=== PATIENT | female | born 1965 | race Caucasian/White ===

== ENCOUNTER 2025-07-30 12:56 | Outpatient (CLI) | payer BC ==
[2025-07-30 14:10] LABS: ALT (SGPT) 27 U/L (Less than 34); AST (SGOT) 26 U/L (11-34); Albumin 4.2 g/dL (3.1-4.5); Alkaline Phosphatase 48 U/L (40-110); Anion Gap 10 mmol/L (10-20); BUN (Urea Nitrogen) 11 mg/dL (9.8-20.1); Bilirubin, Total 0.8 mg/dL (0.3-1.2); Calc. Creatinine Clearance 0 mL/min (70-130); Calcium 9.3 mg/dL (7.8-10.44); Carbon Dioxide 29 mmol/L (22-29); Chloride 103 mmol/L (98-107); Globulin 2.8 g/dL (2.4-3.5); Glucose 102 mg/dL (70-105); Potassium 3.8 mmol/L (3.5-5.1); Sodium 138 mmol/L (136-145)
[2025-07-30 14:23] LABS: #Basophils 0.07 10x3/uL (0.0-0.2); #Eosinophils 0.11 10x3/uL (0.0-0.7); #Monocytes 0.60 10x3/uL (0.11-0.59); #Neutrophils 5.53 10x3/uL (1.40-6.50); %Basophils 0.8 % (0.0-1.0); %Eosinophils 1.3 % (0.0-10.0); %Lymphocytes 25.6 % (21.0-51.0); %Monocytes 7.1 % (0.0-10.0); %Neutrophils 65.1 % (42.0-75.0); Hematocrit 42.3 % (36.0-47.0); Hemoglobin 14.2 g/dL (12.0-16.0); Mean Corpuscular Hemoglobin 30.4 pg (27.0-31.0); Mean Corpuscular Volume 90.6 fL (78.0-98.0); Platelet Count 255 10x3/uL (130-400); Red Blood Cell (RBC) Count 4.67 mill/uL (4.20-5.40); White Blood Cell (WBC) Count 8.49 10x3/uL (4.8-10.8)
== END 2025-07-30 12:57 | disposition home or self-care (01) ==
LOC: LABBT 12:56
PROVIDERS: ATTEND Internal Medicine
DX: Z01.818 Encounter for other preprocedural examination (principal); K57.32 Diverticulitis of large intestine without perforation or abscess without bleeding; K43.9 Ventral hernia without obstruction or gangrene
CPT/HCPCS: 80053; 85025; 93005; 93010

== ENCOUNTER 2025-07-30 13:00 | Inpatient (IN) | payer BC ==
[2025-07-30 13:07] VITALS: BMI 27.9
[2025-08-04] MEDS ORDERED: Acetaminophen 325 MG TAB ONE (06:20)
[2025-08-04] MEDS ORDERED: Heparin 5,000 UNITS/ML VIAL ONE (06:20)
[2025-08-04] MEDS ORDERED: CEFAZOLIN 2 GM VIAL ONE (06:21)
[2025-08-04] MEDS ORDERED: metroNIDAZOLE 500 MG (100 mL) BAG ONE (06:21)
[2025-08-04] MEDS ORDERED: Bupivacaine 0.25% HCL 30 ML VIAL ONE (07:00)
[2025-08-04] MEDS ORDERED: fentaNYL PF 100 MCG/2 ML SYRINGE ONE (07:17)
[2025-08-04] MEDS ORDERED: Rocuronium Bromide 10 MG/ML (10ML VIAL) ONE (07:17)
[2025-08-04] MEDS ORDERED: Lidocaine 1% PF 5 ML VIAL ONE (07:17)
[2025-08-04] MEDS ORDERED: Ondansetron PF 4 MG/2 ML Vial ONE (07:19)
[2025-08-04] MEDS ORDERED: PROPOFOL 200 MG/20 ML VIAL ONE (07:36)
[2025-08-04] MEDS ORDERED: HYDROmorphone 2 MG/ML VIAL ONE (07:59)
[2025-08-04] MEDS ORDERED: PHENYLEPHRINE-NS 100 MCG/ML 10 ML SYRINGE ONE (08:12)
[2025-08-04] MEDS ORDERED: Glycopyrrolate 0.2 MG/ML 5 ML SYRINGE ONE (08:45)
[2025-08-04] MEDS ORDERED: NEOSTIGMINE 3 MG/3 ML SYRINGE ONE (08:45)
[2025-08-04] MEDS ORDERED: Ondansetron PF 4 MG/2 ML Vial IVP PRN (09:11)
[2025-08-04] MEDS ORDERED: hydrALAZINE 20 MG/ML VIAL SLOW IVP PRN (09:11)
[2025-08-04] MEDS ORDERED: Cyclobenzaprine 10 MG TAB PO PRN (09:13)
[2025-08-04] MEDS ORDERED: Ketorolac Tromethamine 30 MG (1 mL) VIAL ONE (09:25)
[2025-08-04] MEDS: Acetaminophen 325 MG TAB PO SCH (11:36)
[2025-08-04] MEDS: Ketorolac Tromethamine 30 MG (1 mL) VIAL IVP SCH (12:30)
[2025-08-04] MEDS: DULoxetine 30 MG CAP PO SCH (21:11)
[2025-08-04] MEDS: Losartan 25 MG TAB PO SCH (21:12)
[2025-08-05 04:25] LABS: #Basophils 0.03 10x3/uL (0.0-0.2); #Eosinophils Less than 0.03 10x3/uL (0.0-0.7); #Monocytes 0.86 10x3/uL (0.11-0.59); #Neutrophils 10.87 10x3/uL (1.40-6.50); %Basophils 0.2 % (0.0-1.0); %Eosinophils 0.0 % (0.0-10.0); %Lymphocytes 11.3 % (21.0-51.0); %Monocytes 6.5 % (0.0-10.0); %Neutrophils 81.7 % (42.0-75.0); Hematocrit 39.7 % (36.0-47.0); Hemoglobin 13.0 g/dL (12.0-16.0); Mean Corpuscular Hemoglobin 29.8 pg (27.0-31.0); Mean Corpuscular Volume 91.1 fL (78.0-98.0); Platelet Count 242 10x3/uL (130-400); Red Blood Cell (RBC) Count 4.36 mill/uL (4.20-5.40); White Blood Cell (WBC) Count 13.30 10x3/uL (4.8-10.8)
[2025-08-05 04:36] LABS: Anion Gap 15 mmol/L (10-20); BUN (Urea Nitrogen) 9 mg/dL (9.8-20.1); Calc. Creatinine Clearance 104 mL/min (70-130); Calcium 8.3 mg/dL (7.8-10.44); Carbon Dioxide 21 mmol/L (22-29); Chloride 104 mmol/L (98-107); Glucose 100 mg/dL (70-105); Potassium 4.2 mmol/L (3.5-5.1); Sodium 136 mmol/L (136-145)
[2025-08-05] MEDS: Enoxaparin 40 MG (0.4 mL) SYRINGE SC SCH (08:45)
[2025-08-06 08:05] VITALS: BP 143/77; TEMP 98.5
== END 2025-08-06 10:40 | disposition home or self-care (01) | DRG 331 ==
LOC: SURG A 08-04 06:14 → SURG B 08-04 11:22
PROVIDERS: ADMIT Surgery; ATTEND Surgery
PROC: 0DTN4ZZ Resection of Sigmoid Colon, Percutaneous Endoscopic Approach (ICD-10-PCS; principal; 2025-08-04)
PROC: 8E0W4CZ Robotic Assisted Procedure of Trunk Region, Percutaneous Endoscopic Approach (ICD-10-PCS; 2025-08-04)
DX: K57.32 Diverticulitis of large intestine without perforation or abscess without bleeding (principal); K43.9 Ventral hernia without obstruction or gangrene
CPT/HCPCS: 36415; 36416; 80048; 85025; 88307; C1776; J0169; J0665; J1100; J1171; J1644; J1650; J1885; J2250; J2405; J2704; S2900